=== PATIENT | female | born 1965 | race Caucasian/White ===

== ENCOUNTER 2017-12-09 13:10 | Inpatient (IN) | payer OTHER ==
[2017-12-09] MEDS ORDERED: ONDANSETRON 4 MG INJ IV (15:00)
[2017-12-09] MEDS ORDERED: LORAZEPAM 2 MG INJ IV (15:00)
[2017-12-09] MEDS ORDERED: NA PHOSPHATE/BIPHOS 133 ML ENEMA PR ×2 (15:00)
[2017-12-09] MEDS ORDERED: HYDROCODONE/APAP (5/325) TAB PO (15:00)
[2017-12-09] MEDS ORDERED: NITROGLYCERIN (SL) 0.4 MG TAB SL (15:00)
[2017-12-09] MEDS ORDERED: ALBUTEROL/IPRATROPIUM (NEB) 3 ML AMP HHN (15:00)
[2017-12-09] MEDS ORDERED: hydrALAzine 20 MG INJ IV (15:00)
[2017-12-09] MEDS ORDERED: ACETAMINOPHEN 325 MG TAB PO (15:00)
[2017-12-09] MEDS ORDERED: NACL 0.9% 3 ML SYG IV (15:00)
[2017-12-09] MEDS: DOCUSATE SODIUM 100 MG CAP PO (15:42)
[2017-12-09] MEDS: MAGNESIUM HYDROXIDE 30ML CUP PO (15:42)
[2017-12-09] MEDS: MINERAL OIL 30ML CUP PO (15:43)
[2017-12-09] MEDS: SOD CHLORIDE 0.9% 1,000 ML IV (15:43)
[2017-12-09] MEDS: POLYETHYLENE GLYCOL 17 GM PACKET PO ×2 (15:43→21:08)
[2017-12-09] MEDS: morphine 2 MG INJ IV (16:11)
[2017-12-09 16:26] LABS: FREE T4 (FREE THYROXINE) 0.94 ng/dl (0.64-1.79)
[2017-12-09] MEDS: MAGNESIUM CITRATE 300 ML BTL PO (18:04)
[2017-12-09] MEDS: DEXTROSE 5%-0.45% NACL 1,000 ML IV (18:04)
[2017-12-09] MEDS: HEPARIN 5,000 UNIT/0.5 ML VIAL SC (21:00)
[2017-12-10] MEDS: MINERAL OIL 30ML CUP PO ×2 (00:49→06:20)
[2017-12-10] MEDS: IOHEXOL 14.3 MG(I)/ML (ADULT) BTL PO (01:10)
[2017-12-10] MEDS: DEXTROSE 5%-0.45% NACL 1,000 ML IV ×3 (04:21→22:30)
[2017-12-10] MEDS: PANTOPRAZOLE 40 MG INJ IV (06:20)
[2017-12-10 06:49] LABS: ADD MAN DIFF? NO
[2017-12-10 06:52] LABS: BASOPHILS % 0.6 % (0.0-2.0); EOSINOPHILS # 0.1 10^3/ul (0.0-0.5); HEMOGLOBIN 12.7 g/dl (12.0-16.0); LYMPHOCYTES # 2.9 10^3/ul (0.8-2.9); MEAN CORPUSCULAR HEMOGLOBIN 32.9 pg (29.0-33.0); MEAN CORPUSCULAR HGB CONC 33.4 g/dl (32.0-37.0); MEAN CORPUSCULAR VOLUME 98.4 fl (82.0-101.0); MEAN PLATELET VOLUME 11.3 fl (7.4-10.4); MONOCYTE # 0.4 10^3/ul (0.3-0.9); MONOCYTES % 8.2 % (0.0-11.0); NEUTROPHIL # 1.7 10^3/ul (1.6-7.5); PLATELET COUNT 120 10^3/UL (140-415); POSITIVE DIFF @See below; RED BLOOD COUNT 3.86 10^6/ul (4.20-5.40); RED CELL DISTRIBUTION WIDTH 12.4 % (11.5-14.5)
[2017-12-10 07:24] LABS: ANION GAP 6 (8-16); BLOOD UREA NITROGEN 11 mg/dl (7-20); CALCIUM 8.4 mg/dl (8.4-10.2); CARBON DIOXIDE 28 mmol/L (21-31); CHLORIDE 111 mmol/L (97-110); CHOL/HDL RATIO 2.5 RATIO; CHOLESTEROL 122 mg/dl (100-200); CREATININE 0.54 mg/dl (0.44-1.00); GLUCOSE 103 mg/dl (70-220); HDL CHOLESTEROL 47 mg/dl (37-92); LDL CHOLESTEROL,CALCULATED 60 mg/dl; MAGNESIUM 2.2 mg/dl (1.7-2.5); PHOSPHORUS 3.5 mg/dl (2.5-4.9); POTASSIUM 3.8 mmol/L (3.5-5.1); SODIUM 141 mmol/L (135-144); TRIGLYCERIDES 73 mg/dl (0-149)
[2017-12-10] MEDS: POLYETHYLENE GLYCOL 17 GM PACKET PO (09:01)
[2017-12-10] MEDS: HEPARIN 5,000 UNIT/0.5 ML VIAL SC ×2 (09:18→20:40)
[2017-12-10] MEDS: morphine 2 MG INJ IV (23:50)
[2017-12-11] MEDS: DEXTROSE 5%-0.45% NACL 1,000 ML IV ×3 (02:01→11:33)
[2017-12-11 05:57] LABS: ADD MAN DIFF? NO
[2017-12-11 06:04] LABS: WHITE BLOOD COUNT 5.6 10^3/ul (4.8-10.8)
[2017-12-11 06:04] LABS: BASOPHILS % 0.4 % (0.0-2.0); EOSINOPHILS # 0.1 10^3/ul (0.0-0.5); EOSINOPHILS % 1.3 % (0.0-7.0); HEMATOCRIT 37.5 % (37.0-47.0); HEMOGLOBIN 12.6 g/dl (12.0-16.0); LYMPHOCYTES # 2.8 10^3/ul (0.8-2.9); LYMPHOCYTES % 50.9 % (15.0-51.0); MEAN CORPUSCULAR HEMOGLOBIN 33.4 pg (29.0-33.0); MEAN CORPUSCULAR HGB CONC 33.6 g/dl (32.0-37.0); MEAN CORPUSCULAR VOLUME 99.5 fl (82.0-101.0); MEAN PLATELET VOLUME 11.6 fl (7.4-10.4); MONOCYTE # 0.5 10^3/ul (0.3-0.9); NEUTROPHIL # 2.1 10^3/ul (1.6-7.5); NEUTROPHILS % 38.2 % (39.0-77.0); PLATELET COUNT 116 10^3/UL (140-415); RED BLOOD COUNT 3.77 10^6/ul (4.20-5.40); RED CELL DISTRIBUTION WIDTH 12.3 % (11.5-14.5)
[2017-12-11] MEDS: PANTOPRAZOLE 40 MG INJ IV (06:10)
[2017-12-11] MEDS: morphine 2 MG INJ IV ×3 (06:10→22:11)
[2017-12-11 06:28] LABS: ANION GAP 7 (8-16); BLOOD UREA NITROGEN 8 mg/dl (7-20); CALCIUM 8.4 mg/dl (8.4-10.2); CARBON DIOXIDE 29 mmol/L (21-31); CHLORIDE 111 mmol/L (97-110); CREATININE 0.61 mg/dl (0.44-1.00); GLUCOSE 99 mg/dl (70-220); SODIUM 143 mmol/L (135-144)
[2017-12-11 06:30] LABS: PHOSPHORUS 3.5 mg/dl (2.5-4.9)
[2017-12-11 06:30] LABS: MAGNESIUM 1.9 mg/dl (1.7-2.5)
[2017-12-11] MEDS: HEPARIN 5,000 UNIT/0.5 ML VIAL SC ×2 (08:44→21:00)
[2017-12-12] MEDS: DEXTROSE 5%-0.45% NACL 1,000 ML IV ×3 (02:02→14:30)
[2017-12-12 05:37] LABS: ADD MAN DIFF? NO
[2017-12-12] MEDS: PANTOPRAZOLE 40 MG INJ IV (05:42)
[2017-12-12 05:49] LABS: BASOPHILS % 0.6 % (0.0-2.0); EOSINOPHILS # 0.1 10^3/ul (0.0-0.5); HEMATOCRIT 36.6 % (37.0-47.0); HEMOGLOBIN 12.1 g/dl (12.0-16.0); LYMPHOCYTES # 2.5 10^3/ul (0.8-2.9); LYMPHOCYTES % 51.2 % (15.0-51.0); MEAN CORPUSCULAR HEMOGLOBIN 32.7 pg (29.0-33.0); MEAN CORPUSCULAR HGB CONC 33.1 g/dl (32.0-37.0); MEAN CORPUSCULAR VOLUME 98.9 fl (82.0-101.0); MEAN PLATELET VOLUME 11.4 fl (7.4-10.4); MONOCYTE # 0.5 10^3/ul (0.3-0.9); MONOCYTES % 9.2 % (0.0-11.0); NEUTROPHIL # 1.9 10^3/ul (1.6-7.5); NEUTROPHILS % 37.8 % (39.0-77.0); PLATELET COUNT 119 10^3/UL (140-415); RED CELL DISTRIBUTION WIDTH 12.1 % (11.5-14.5)
[2017-12-12 05:49] LABS: WHITE BLOOD COUNT 4.9 10^3/ul (4.8-10.8)
[2017-12-12 06:26] LABS: ANION GAP 6 (8-16); BLOOD UREA NITROGEN 7 mg/dl (7-20); CALCIUM 8.2 mg/dl (8.4-10.2); CARBON DIOXIDE 29 mmol/L (21-31); CHLORIDE 111 mmol/L (97-110); CREATININE 0.63 mg/dl (0.44-1.00); GLUCOSE 98 mg/dl (70-220); POTASSIUM 3.9 mmol/L (3.5-5.1); SODIUM 142 mmol/L (135-144)
[2017-12-12 06:39] LABS: POSITIVE DIFF @See below
[2017-12-12] MEDS: HEPARIN 5,000 UNIT/0.5 ML VIAL SC (09:00)
[2017-12-12] MEDS ORDERED: morphine 2 MG INJ IV (12:30)
[2017-12-12] MEDS: DOCUSATE SODIUM 100 MG CAP PO (12:42)
== END 2017-12-12 16:20 | disposition home or self-care (01) | DRG 761 ==
LOC: MS2 13:10
PROVIDERS: Family Medicine
DX: N83.202 Unspecified ovarian cyst, left side (principal); K56.41 Fecal impaction; Z86.19 Personal history of other infectious and parasitic diseases; Z90.49 Acquired absence of other specified parts of digestive tract; Z90.710 Acquired absence of both cervix and uterus; Z90.722 Acquired absence of ovaries, bilateral
CPT/HCPCS: 72196; 74018; 74176; 74182; 76856; 80048; 80061; 83036; 83735; 84100; 84439; 84443; 85025

== ENCOUNTER 2018-03-17 00:30 | Emergency (ER) | payer SELFPAY, OTHER | END 2018-03-17 01:47 | disposition left against medical advice (07) | LOC: FTE 00:30 | DX: Z53.21 Procedure and treatment not carried out due to patient leaving prior to being seen by health care provider (principal) ==